=== PATIENT | female | born 1950 | race Caucasian/White ===

== ENCOUNTER → 2017-08-17 07:33 | Outpatient (CLI) | payer MEDICARE, SELFPAY ==
[2017-08-17 08:10] LABS: Alanine Aminotransferase 21 IU/L (9-52); Albumin 3.9 g/dL (3.5-5.0); Albumin Globulin Ratio 1.2 (1.0-2.8); Alkaline Phosphatase 66 U/L (38-126); Aspartate Aminotransferase 25 IU/L (14-36); BUN Creatinine Ratio 24.3 (6-22); Bilirubin Total 0.4 mg/dL (0.2-1.3); Blood Urea Nitrogen 17 mg/dL (7-17); Calcium 9.4 mg/dL (8.4-10.2); Carbon Dioxide 30 mmol/L (22-32); Chloride 104 mmol/L (98-107); Cholesterol 230 mg/dL (140-199); Estimated Glomerular Filt Rate > 60.0 mL/min (>60); Globulin 3.3 g/dL (1.7-4.1); Glucose 99 mg/dL (80-110); HDL Cholesterol 51 mg/dL (40-60); HEMOLYSIS 15 (0-50); LDL Cholesterol Calculated 155 mg/dL (<100); Potassium 3.6 mmol/L (3.4-5.1); Sodium 141 mmol/L (137-145); Total Protein 7.2 g/dL (6.3-8.2); Triglycerides 121 mg/dL (35-150)
[2017-08-17 09:26] LABS: Thyroid Stimulating Hormone 0.58 uIU/mL (0.47-4.68)
== END ==
PROVIDERS: Family Provider Physician Assistant; PCP Physician Assistant; Visit Provider Physician Assistant
DX: E03.9 Hypothyroidism, unspecified (principal); E78.5 Hyperlipidemia, unspecified
CPT/HCPCS: 36415; 80053; 80061; 84443

== ENCOUNTER → 2018-08-14 08:17 | Outpatient (CLI) | payer MEDICARE, SELFPAY ==
[2018-08-14 09:25] LABS: Add Manual Diff / Slide Review NO; Basophils Absolute Auto 0 /uL (0-100); Basophils Percent Auto 0.4 % (0-2); Eosinophils Absolute Auto 100 /uL (0-450); Eosinophils Percent Auto 1.5 % (2-4); Hematocrit 41.5 % (36-46); Hemoglobin 14.1 g/dL (12.0-16.0); Lymphocytes Absolute Auto 2600 /uL (1100-4500); Lymphocytes Percent Auto 38.5 % (25-40); Mean Corpuscular Hemoglobin 33.4 PG (26-34); Mean Corpuscular Volume 98.2 fL (80-100); Monocytes Absolute Auto 800 /uL (0-900); Monocytes Percent Auto 11.3 % (3-14); Neutrophils Absolute Auto 3300 /uL (1500-7000); Neutrophils Percent Auto 48.3 % (50-75); Platelet Count 206 X10^3/uL (150-400); Red Blood Cell Count 4.23 X10^6/uL (4.0-5.2); White Blood Cell Count 6.7 X10^3/uL (4.5-11.0)
[2018-08-14 09:48] LABS: Alanine Aminotransferase 15 IU/L (9-52); Albumin 3.9 g/dL (3.5-5.0); Albumin Globulin Ratio 1.3 (1.0-2.8); Alkaline Phosphatase 51 U/L (38-126); Aspartate Aminotransferase 22 IU/L (14-36); BUN Creatinine Ratio 17.1 (6-22); Bilirubin Total 0.5 mg/dL (0.2-1.3); Blood Urea Nitrogen 12 mg/dL (7-17); Calcium 9.3 mg/dL (8.4-10.2); Carbon Dioxide 29 mmol/L (22-32); Chloride 106 mmol/L (98-107); Cholesterol 182 mg/dL (140-199); Estimated Glomerular Filt Rate > 60.0 mL/min (>60); Glucose 95 mg/dL (80-110); HDL Cholesterol 48 mg/dL (40-60); HEMOLYSIS < 15 (0-50); LDL Cholesterol Calculated 109 mg/dL (<100); Potassium 3.5 mmol/L (3.4-5.1); Sodium 143 mmol/L (137-145); Total Protein 6.9 g/dL (6.3-8.2); Triglycerides 124 mg/dL (35-150)
[2018-08-14 10:15] LABS: Thyroid Stimulating Hormone 1.16 uIU/mL (0.47-4.68)
== END ==
PROVIDERS: PCP Physician Assistant; Visit Provider Physician Assistant
DX: E78.2 Mixed hyperlipidemia (principal); E03.9 Hypothyroidism, unspecified; E78.5 Hyperlipidemia, unspecified; Z79.899 Other long term (current) drug therapy
CPT/HCPCS: 36415; 80053; 80061; 84443; 85025

== ENCOUNTER 2019-04-01 11:49 | Day surgery (SDC) | payer MEDICARE, SELFPAY ==
--- NOTE | 2019-04-01 | PATH_ITS ---
[facility] Accession Number: [id number] . 01 Material submitted: . colon - CECUM POLYP AT 130CM . 02 Diagnosis: Cecum at 130 cm, Polyp: Tubular adenoma. V 04/02/2019 0918 Local . 02 Electronically signed: . Lyle Lawrence MD, PhD, Pathologist NPI- [id number] . 01 Gross description: . CECUM POLYP AT 130CM: Received in formalin are 2 fragment(s) of mesa, soft tissue measuring 0.1 x 0.1 x 0.1 cm to 0.3 x 0.3 x 0.3 cm submitted entirely in 1 cassette(s) /[facility] [place] 04/01/20193 Local . 02 Pathologist provided ICD-10: D12.0 . 02 CPT . 515184 Performed at: 01 [facility] [address] [id number] MD Magdiel Jarvis MD Phone: [phone] Performed at: 02 [facility] [address] [place], [place] [id number] MD Lily Singh MD Phone: [phone]
[2019-04-01] MEDS: SODIUM CHLORIDE 0.9% 1,000 ML 200 ML IV ×2 (12:19→12:36)
[2019-04-01 12:29] VITALS: BP 125/72; PULSE 72; RESP 16; TEMP 36.8; O2SAT 96; BMI 23.8
--- NOTE | 2019-04-01 13:34 | PM.HP.1 ---
History of Present Illness History of Present Illness Date Patient Seen: 04/01/19 Time Patient Seen: 13:34 Chief complaint: [id number] SCREENING COLONOSCOPY Narrative: This is a 68-year-old woman here for surveillance colonoscopy. She has a history of many polyps found on many colonoscopies. She had a sigmoid resection in 2011 for a large tubular adenoma which could not be removed endoscopically. She denies any melena, hematochezia, unexplained abdominal pain, or unexplained weight loss. She denies any other significant medical problems. ROS: Thirteen system review is otherwise negative other than as mentioned below and in HPI. PE: GENERAL: Well groomed and cooperative. Appears stated age. Answers questions promptly and appropriately. Vital signs noted. HENT: Normocephalic, atraumatic. Hearing intact. Oral mucosa is pink and moist. EYES: Conjunctiva pink, sclera white, no periorbital swelling. CARDIOVASCULAR: Regular rate. No pedal edema. RESPIRATORY: Non-tachypneic, breathing comfortably on room air. GASTROINTESTINAL: Abdomen soft and non-distended GENITALURINARY: No flank tenderness. MUSCULOSKELETAL: Equal tone and mass bilaterally. SKIN: Warm, dry, soft, appropriate color for ethnicity. No other lesions, rashes, or wounds. NEURO: Alert and Oriented X 3. No gross sensory deficits, or cognitive issues. PSYCH: Appropriate affect and mood. Patient History Family & Social History Social History: household members spouse Tobacco & Substance use: Smoking Status Former smoker alcohol intake former Meds Home Medications and Allergies Home Medications Medication Instructions Recorded Confirmed Type fluticasone propionate 50 1 spray NASAL Q DAY PRN #1 gram 08/23/17 04/01/19 Rx mcg/actuation nasal spray,suspension buspirone 5 mg tablet 5 mg PO .COMPLEX #90 tab 08/26/18 04/01/19 Rx diphenhydramine 25 1 tab PO BEDTIME PRN 08/26/18 04/01/19 History mg-acetaminophen 500 mg tablet levothyroxine 88 mcg tablet 88 mcg PO QDAY #30 tab 08/26/18 04/01/19 Rx simvastatin 40 mg tablet 40 mg PO BEDTIME #30 tab 08/26/18 04/01/19 Rx sertraline 50 mg tablet 100 mg PO QDAY #60 tab 01/06/19 04/01/19 Rx Allergies Allergy/AdvReac Type Severity Reaction Status Date / Time aspirin Allergy Severe TONGUE Verified 04/01/19 12:19 SWELLING strawberry Allergy Intermediate HIVES Verified 04/01/19 12:19 Exam Vital Signs (past 8 hours): - 04/01/19 12:29 Temperature 98.3 F Pulse Rate 72 Respiratory Rate 16 Blood Pressure 125/72 Pulse Oximetry 96 Oxygen Delivery Method Room Air Assessment & Plan Assessment and plan (1) Polyp of colon: Problem details: Tubular adenoma x 2 on colonoscopy done 03/28/16 Current visit: No Status: Resolved (2) History of colon polyps: Current visit: Yes Status: Acute Assessment & Plan narrative: This is a 68-year-old woman with history of significant colon polyps. Here for follow-up surveillance colonoscopy. Risks and benefits of screening colonoscopy and possible polypectomy were discussed with the patient including risk of bleeding, perforation, need for additional procedures, risks of anesthesia. The patient desires to proceed with the colonoscopy procedure. Time Spent With Patient Time with patient: 15-24 minutes Quality VTE Deep Vein Thrombosis/Pulmonary Embolism Present on Admission: No
--- NOTE | 2019-04-01 14:01 | PM.OP.ENDO ---
Operative Date/Time/Diagnoses Date of procedure: 04/01/19 Time of procedure: 14:02 Pre-op diagnosis: History of multiple colon polyps Post-op diagnosis: same Procedure & Clinicians Study performed: Surveillance colonoscopy, polypectomy with cold forceps Same procedure as scheduled: Yes Indications: History of multiple colon polyps Surgeon: Carissa Eller Procedure Notes SCOAP/Timeout: Performed Procedure in detail: The patient was brought to the room and placed in left lateral decubitus position with all bony prominences padded. A time-out was performed and then the patient was given procedural sedation starting with 2 mg of Versed and 100 mcg of fentanyl. Total of 4 mg of Versed and 200 micro g of fentanyl were given for the procedure. Vitals were monitored throughout the procedure and remained stable. The patient had multiple desats, and so we are not able to give her more sedation during the course of the procedure. Once adequately sedated the procedure was begun. A rectal exam was performed revealing large external hemorrhoids without thrombosis or stigmata of bleeding. The colonoscope was then introduced to the rectum and advanced to the cecum in the usual fashion. The cecum was identified by the appendiceal orifice, the mucosal tri-fold, and the ileocecal valve. The scope was then retracted while rotating side to side and examining each mucosal fold. About 6 polyps were seen in the ascending colon between 130 and 100 cm. As I began to remove polyps, the patient rapidly vacillate it between not breathing, and writhing in pain. With our capabilities under conscious sedation, we were not able to keep her stable and adequately sedated for the procedure. At this point I elected to evaluate her for polyps, but bring her back to remove them under monitored anesthesia care with anesthesiologist. 6 polyps were seen between 101 130 cm in the ascending colon. Two polyps were seen at 80 cm, 2 polyps were seen at 55 cm, 1 polyp was seen at 50 cm, 1 polyp was seen at 45 cm, and 1 polyp was seen at 25 cm. These varied in size from 1/2 cm to 1-1/2 to 2 cm. At the conclusion of the procedure retroflexion was performed and grade 2 internal hemorrhoids without stigmata of bleeding were seen. I took pictures throughout the procedure, but unfortunately the printer malfunctioned and only for pictures came out, none of which were pictures of the polyps. The scope was then withdrawn from the rectum the procedure was concluded. The patient tolerated the procedure well and was transferred to the PACU in stable condition. Scope withdrawal time: 6 Sedation minutes: 22 Findings: internal hemorrhoids and polyp (13) Specimen(s): other (Cecal polyp at 130 cm) Complications: none Impression: Many polyps, patient did not tolerate sedation, will need a repeat colonoscopy as soon as possible with anesthesiologist Post-procedure Plan for aftercare: Follow-up as soon as possible for colonoscopy under monitored anesthesia care Disposition: PACU
[2019-04-01] MEDS: MIDAZOLAM 5 MG/ML VIAL IV (14:05)
[2019-04-01 14:06] VITALS: BP 120/64; PULSE 60; RESP 9; TEMP 36.2; O2SAT 94
[2019-04-01] MEDS: fentaNYL 250 MCG/5 ML INJ IV (14:06)
[2019-04-01 14:11] VITALS: BP 120/68; PULSE 60; RESP 8; O2SAT 94
[2019-04-01 14:16] VITALS: PULSE 63; RESP 16; O2SAT 95
[2019-04-01 14:25] VITALS: BP 117/63; PULSE 52; RESP 16; TEMP 36.5; O2SAT 95
== END 2019-04-01 14:51 | disposition home or self-care (01) ==
PROVIDERS: PCP Physician Assistant; Referring Provider Surgery; Visit Provider Surgery
PROC: 0DJD8ZZ Inspection of Lower Intestinal Tract, Via Natural or Artificial Opening Endoscopic (ICD-10-PCS; CPT 45378; principal; 2019-04-01 13:00)
DX: Z12.11 Encounter for screening for malignant neoplasm of colon (principal); Z86.010 Personal history of colon polyps; K64.1 Second degree hemorrhoids; D12.0 Benign neoplasm of cecum
CPT/HCPCS: 45380; 99152; J2250; J3010

== ENCOUNTER 2019-04-16 14:55 | Day surgery (SDC) | payer MEDICARE, SELFPAY ==
--- NOTE | 2019-04-16 | PATH_ITS ---
[facility] Accession Number: [id number] . 01 Material submitted: . PART A: colon - COLON POLYP AT 150 CM PART B: colon - COLON POLYPS AT 140 CM PART C: colon - COLON POLYPS AT 120 CM PART D: colon - COLON POLYP AT 70 CM PART E: colon - COLON POLYPS AT 10 CM AT ANASTOMOSIS . 02 Diagnosis: A. Colon at 150 cm, Polyp: Tubular adenoma. . B. Colon at 140 cm, Polyps: Fragments of tubular adenoma. . C. Colon at 120 cm, Polyps: Fragments of tubular adenoma. . D. Colon at 70 cm, Polyp: Fragments of tubular adenoma. . E. Colon at 10 cm, Anastomosis, Polyps: Fragments of tubular adenoma. [facility] 04/18/2019 1014 Local . 02 Electronically signed: . Lyle Lawrence MD, PhD, Pathologist NPI- [id number] . 01 Gross description: . Part A: COLON POLYP AT 150 CM: Received in formalin is 1 fragment(s) of mesa, soft tissue measuring 0.3 x 0.2 x 0.2 cm submitted entirely in 1 cassette(s) Part B: COLON POLYPS AT 140 CM: Received in formalin are multiple fragment(s) of mesa, soft tissue measuring 1.2 x 0.6 x 0.2 cm in aggregate submitted entirely in 1 cassette(s) Part C: COLON POLYPS AT 120 CM: Received in formalin are multiple fragment(s) of mesa, soft tissue measuring 0.7 x 0.4 x 0.2 cm in aggregate submitted entirely in 1 cassette(s) Part D: COLON POLYP AT 70 CM: Received in formalin are multiple fragment(s) of mesa, soft tissue measuring 1.0 x 0.8 x 0.2 cm in aggregate submitted entirely in 1 cassette(s) Part E: COLON POLYPS AT 10 CM AT ANASTOMOSIS: Received in formalin are 3 fragment(s) of mesa, soft tissue measuring 0.3 x 0.2 x 0.1 cm to 0.2 x 0.2 x 0.2 cm submitted entirely in 1 cassette(s) /[facility] 04/17/2019 0553 Local . 02 Pathologist provided ICD-10: D12.6 . 02 CPT . 041547, 249925, 718716, 144554, 341251 Performed at: 01 [facility] [address] [id number] MD Magdiel Jarvis MD Phone: [phone] Performed at: 02 [facility] [address] [place] [id number] MD Lily Singh MD Phone: [phone]
[2019-04-16 15:13] VITALS: BP 129/77; PULSE 83; RESP 16; TEMP 36.8; O2SAT 71; BMI 22.1
[2019-04-16] MEDS: SODIUM CHLORIDE 0.9% 1,000 ML 200 ML IV (15:43)
--- NOTE | 2019-04-16 17:25 | PM.PREOP ---
Pre-operative Note Interval Note History & Physical reviewed/Exam performed by Physician: Yes Changes to H&P: Yes H&P completed within 30 days and has changed as indicated here:: Patient had attempted colonoscopy last week, but was unable to tolerate conscious sedation. Anesthesiologist was not available at that time, so she was rescheduled to have her colonoscopy and polypectomy now.
--- NOTE | 2019-04-16 18:53 | PM.OP.ENDO ---
Operative Date/Time/Diagnoses Date of procedure: 04/16/19 Time of procedure: 18:53 Pre-op diagnosis: Multiple colon polyps Post-op diagnosis: same Procedure & Clinicians Study performed: Colonoscopy with polypectomy x15 using cold forceps and hot snare Same procedure as scheduled: Yes Indications: This is a 68-year-old woman with personal history of colon polyps and colon cancer Surgeon: Carissa Eller Procedure Notes SCOAP/Timeout: Performed Procedure in detail: The patient was brought to the room and placed in left lateral decubitus position with all bony prominences padded. General anesthesia was induced by the anesthesiologist and the patient was intubated with an LMA. A surgical time-out was performed and then the procedure was begun. Vitals were monitored throughout the procedure and remained stable. A rectal exam was performed revealing large external hemorrhoids without thrombosis or stigmata of bleeding. The colonoscope was then introduced to the rectum and advanced to the cecum in the usual fashion. The cecum was identified by the appendiceal orifice, the mucosal tri-fold, and the ileocecal valve. The scope was then retracted while rotating side to side and examining each mucosal fold. Multiple 5 mm to 1 cm adenomatous polyps were seen throughout the colon. Multiple polyps were removed at one hundred fifty cm, 140 cm, 120 cm, and 70 cm using cold forceps and hot snare. Total of 15 polyps were removed. All appeared to be precancerous adenomas. At 10cm from the anal verge, the anastomosis from the patient's prior colon resection was seen. Hypercellular mucosa was seen and biopsied. The anaostomosis was patent without stenosis. The blind pouch was evaluated and appeared normal without any polyps. At the conclusion of the procedure retroflexion was performed and moderate internal hemorrhoids without stigmata of bleeding were seen. The scope was then withdrawn from the rectum the procedure was concluded. The patient tolerated the procedure well and was transferred to the PACU in stable condition. Scope withdrawal time: 46 Findings: internal hemorrhoids and polyp (15 x 5 mm to 1 cm polyps) Complications: none Impression: Multiple precancerous polyps, possible inflammatory tissue or recurrence at the rectosigmoid anastomosis Post-procedure Recommendations: Colonscopy in 1 year Follow up: as needed Disposition: PACU
[2019-04-16 19:04] VITALS: BP 151/70; PULSE 70; RESP 18; TEMP 36.2; O2SAT 95
[2019-04-16 19:09] VITALS: BP 183/49; PULSE 72; RESP 11; TEMP 36.6; O2SAT 95
[2019-04-16 19:14] VITALS: BP 152/70; PULSE 68; RESP 16; TEMP 36.4; O2SAT 94
[2019-04-16 19:18] VITALS: BP 134/76; PULSE 72; RESP 12; TEMP 36.3; O2SAT 96
[2019-04-16 19:30] VITALS: BP 142/78; PULSE 68; RESP 16; TEMP 36.7; O2SAT 96
== END 2019-04-16 19:35 | disposition home or self-care (01) ==
PROVIDERS: PCP Physician Assistant; Referring Provider Surgery; Visit Provider Surgery
PROC: 0DJD8ZZ Inspection of Lower Intestinal Tract, Via Natural or Artificial Opening Endoscopic (ICD-10-PCS; CPT 45378; principal; 2019-04-16 17:00)
DX: D12.6 Benign neoplasm of colon, unspecified (principal); Z85.038 Personal history of other malignant neoplasm of large intestine; Z86.010 Personal history of colon polyps
CPT/HCPCS: 45385; 45380; 99152; 99153; J2405; J2704; J3010

== ENCOUNTER → 2019-10-08 09:10 | Outpatient (CLI) | payer MEDICARE, SELFPAY ==
[2019-10-08 09:51] LABS: Add Manual Diff / Slide Review NO; Basophils Absolute Auto 0 /uL (0-100); Basophils Percent Auto 0.5 % (0-2); Eosinophils Absolute Auto 100 /uL (0-450); Eosinophils Percent Auto 1.2 % (2-4); Hematocrit 41.5 % (36-46); Hemoglobin 14.1 g/dL (12.0-16.0); Lymphocytes Absolute Auto 2400 /uL (1100-4500); Lymphocytes Percent Auto 38.7 % (25-40); Mean Corpuscular HGB Conc 33.9 % (30-36); Mean Corpuscular Hemoglobin 32.2 PG (26-34); Mean Corpuscular Volume 95.2 fL (80-100); Monocytes Absolute Auto 700 /uL (0-900); Monocytes Percent Auto 10.7 % (3-14); Neutrophils Absolute Auto 3100 /uL (1500-7000); Neutrophils Percent Auto 48.9 % (50-75); Platelet Count 201 X10^3/uL (150-400); Red Blood Cell Count 4.36 X10^6/uL (4.0-5.2); Red Cell Distribution Width 12.9 % (11.6-14.8); White Blood Cell Count 6.3 X10^3/uL (4.5-11.0)
[2019-10-08 10:25] LABS: Alanine Aminotransferase 11 IU/L (<35); Albumin 4.1 g/dL (3.5-5.0); Albumin Globulin Ratio 1.5 (1.0-2.8); Alkaline Phosphatase 52 U/L (38-126); Aspartate Aminotransferase 23 IU/L (14-36); BUN Creatinine Ratio 18.5 (6-22); Bilirubin Total 0.4 mg/dL (0.2-1.3); Blood Urea Nitrogen 12 mg/dL (7-17); Calcium 9.6 mg/dL (8.4-10.2); Carbon Dioxide 33 mmol/L (22-32); Chloride 104 mmol/L (98-107); Cholesterol 176 mg/dL (140-199); Estimated Glomerular Filt Rate > 60.0 mL/min (>60); Globulin 2.7 g/dL (1.7-4.1); Glucose 92 mg/dL (80-110); HDL Cholesterol 59 mg/dL (40-60); HEMOLYSIS < 15 (0-50); LDL Cholesterol Calculated 97 mg/dL (<100); Potassium 3.4 mmol/L (3.4-5.1); Sodium 140 mmol/L (137-145); Total Protein 6.8 g/dL (6.3-8.2); Triglycerides 102 mg/dL (35-150)
[2019-10-08 10:50] LABS: TSH w/ Reflex to FT4 0.91 uIU/mL (0.47-4.68)
== END ==
PROVIDERS: PCP Registered Nurse Diabetes Educator; Referring Provider Registered Nurse Diabetes Educator; Visit Provider Registered Nurse Diabetes Educator
DX: E03.9 Hypothyroidism, unspecified (principal); E78.5 Hyperlipidemia, unspecified
CPT/HCPCS: 36415; 80053; 80061; 84443; 85025

== ENCOUNTER → 2020-11-05 09:47 | Outpatient (CLI) | payer MEDICARE, SELFPAY ==
[2020-11-05 10:54] LABS: Add Manual Diff / Slide Review NO; Basophils Absolute Auto 0 /uL (0-100); Basophils Percent Auto 0.5 % (0-2); Eosinophils Absolute Auto 100 /uL (0-450); Eosinophils Percent Auto 1.4 % (2-4); Hematocrit 41.2 % (36-46); Lymphocytes Absolute Auto 2400 /uL (1100-4500); Lymphocytes Percent Auto 41.1 % (25-40); Mean Corpuscular Hemoglobin 32.3 PG (26-34); Monocytes Absolute Auto 700 /uL (0-900); Monocytes Percent Auto 11.7 % (3-14); Neutrophils Absolute Auto 2700 /uL (1500-7000); Neutrophils Percent Auto 45.3 % (50-75); Platelet Count 205 X10^3/uL (150-400); Red Blood Cell Count 4.34 X10^6/uL (4.0-5.2); Red Cell Distribution Width 13.3 % (11.6-14.8); White Blood Cell Count 5.9 X10^3/uL (4.5-11.0)
[2020-11-05 11:31] LABS: Alanine Aminotransferase 15 IU/L (<35); Albumin Globulin Ratio 1.6 (1.0-2.8); Alkaline Phosphatase 51 U/L (38-126); Aspartate Aminotransferase 25 IU/L (14-36); BUN Creatinine Ratio 17.2 (6-22); Bilirubin Total 0.3 mg/dL (0.2-1.3); Blood Urea Nitrogen 10 mg/dL (7-17); Calcium 9.6 mg/dL (8.4-10.2); Carbon Dioxide 33 mmol/L (22-32); Chloride 105 mmol/L (98-107); Estimated Glomerular Filt Rate > 60.0 mL/min (>60); Globulin 2.5 g/dL (1.7-4.1); Glucose 91 mg/dL (80-110); HEMOLYSIS < 15 (0-50); Potassium 3.2 mmol/L (3.4-5.1); Sodium 143 mmol/L (137-145); Total Protein 6.5 g/dL (6.3-8.2)
[2020-11-05 12:35] LABS: Free T4, Direct Thyroxine 1.87 ng/dL (0.78-2.19)
== END ==
PROVIDERS: PCP Registered Nurse Diabetes Educator; Referring Provider Registered Nurse Diabetes Educator; Visit Provider Registered Nurse Diabetes Educator
DX: E03.9 Hypothyroidism, unspecified (principal); E78.5 Hyperlipidemia, unspecified
CPT/HCPCS: 36415; 80053; 84439; 84443; 85025

== ENCOUNTER → 2021-01-27 08:24 | Outpatient (CLI) | payer MEDICARE, SELFPAY ==
[2021-01-27 09:32] LABS: BUN Creatinine Ratio 21.7 (6-22); Blood Urea Nitrogen 13 mg/dL (7-17); Calcium 9.7 mg/dL (8.4-10.2); Carbon Dioxide 30 mmol/L (22-32); Chloride 108 mmol/L (98-107); Estimated Glomerular Filt Rate > 60.0 mL/min (>60); Glucose 96 mg/dL (80-110); HEMOLYSIS < 15 (0-50); Potassium 3.5 mmol/L (3.4-5.1); Sodium 142 mmol/L (137-145)
[2021-01-27 10:04] LABS: TSH w/ Reflex to FT4 2.29 uIU/mL (0.47-4.68)
== END ==
PROVIDERS: PCP Registered Nurse Diabetes Educator; Referring Provider Registered Nurse Diabetes Educator; Visit Provider Registered Nurse Diabetes Educator
DX: E03.9 Hypothyroidism, unspecified (principal); E87.6 Hypokalemia
CPT/HCPCS: 36415; 80048; 84443

== ENCOUNTER → 2022-03-13 07:08 | Outpatient (CLI) | payer MEDICARE, SELFPAY ==
[2022-03-13 08:56] LABS: Hematocrit 43.5 % (36-46); Hemoglobin 14.7 g/dL (12.0-16.0); Mean Corpuscular HGB Conc 33.9 % (30-36); Mean Corpuscular Volume 97.5 fL (80-100); Platelet Count 182 X10^3/uL (150-400); Red Blood Cell Count 4.46 X10^6/uL (4.0-5.2); Red Cell Distribution Width 13.1 % (11.6-14.8); White Blood Cell Count 6.4 X10^3/uL (4.5-11.0)
[2022-03-13 09:17] LABS: Alanine Aminotransferase 15 IU/L (<35); Albumin Globulin Ratio 1.4 (1.0-2.8); Alkaline Phosphatase 58 U/L (38-126); Aspartate Aminotransferase 24 IU/L (14-36); BUN Creatinine Ratio 19.4 (6-22); Bilirubin Total 0.6 mg/dL (0.2-1.3); Blood Urea Nitrogen 13 mg/dL (7-17); Calcium 9.2 mg/dL (8.4-10.2); Carbon Dioxide 31 mmol/L (22-32); Chloride 102 mmol/L (98-107); Cholesterol 182 mg/dL (140-199); Estimated Glomerular Filt Rate > 60 mL/min (>60); Globulin 2.8 g/dL (1.7-4.1); Glucose 90 mg/dL (80-110); HDL Cholesterol 65 mg/dL (40-60); HEMOLYSIS < 15 (0-50); LDL Cholesterol Calculated 94 mg/dL (<100); Potassium 3.2 mmol/L (3.4-5.1); Sodium 140 mmol/L (137-145); Total Protein 6.8 g/dL (6.3-8.2); Triglycerides 116 mg/dL (35-150)
[2022-03-13 09:49] LABS: TSH w/ Reflex to FT4 3.39 uIU/mL (0.47-4.68)
== END ==
PROVIDERS: PCP Registered Nurse Diabetes Educator; Referring Provider Registered Nurse Diabetes Educator; Visit Provider Registered Nurse Diabetes Educator
DX: E03.9 Hypothyroidism, unspecified (principal); E78.5 Hyperlipidemia, unspecified; F41.8 Other specified anxiety disorders; R00.1 Bradycardia, unspecified; Z87.898 Personal history of other specified conditions
CPT/HCPCS: 36415; 80053; 80061; 84443; 85027